=== PATIENT | male | born 1965 | race Asian ===

== ENCOUNTER 2019-04-03 07:20 | Emergency (ER) | payer BC ==
[~2019-04-03] VITALS: Ht 170.2 cm; Wt 83.9 kg
[2019-04-03 07:31] VITALS: Ht 170.2 cm; Wt 83.9 kg
[2019-04-03 09:05] VITALS: BP 139/78
== END 2019-04-03 09:05 | disposition home or self-care (01) ==
LOC: ED 07:20
DX: J18.9 Pneumonia, unspecified organism (principal); J45.909 Unspecified asthma, uncomplicated; I10 Essential (primary) hypertension; E11.9 Type 2 diabetes mellitus without complications
CPT/HCPCS: J7512; J7613; J7644; Q0092